=== PATIENT | male | born 1990 | race Hispanic/Latino ===

== ENCOUNTER 2023-04-22 08:05 | Emergency (ER) | payer OTHER ==
[2023-04-22] MEDS ORDERED: Ketorolac Tromethamine 30 MG/ML VIAL ONE (08:40)
== END 2023-04-22 09:03 | disposition home or self-care (01) ==
LOC: CSHERS 08:05
DX: M54.31 Sciatica, right side (principal); F17.210 Nicotine dependence, cigarettes, uncomplicated
CPT/HCPCS: 96372; 99283; J1885